=== PATIENT | female | born 2000 | race Caucasian/White ===

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

== ENCOUNTER → 2020-03-23 | Outpatient (CLI) | payer BC ==
[2020-03-23 15:40] LABS: FREE T4 (FREE THYROXINE) 0.94 ng/dL (0.78-2.19)
[2020-03-23 15:54] LABS: THYROID STIMULATING HORMONE 2.32 uIU/mL (0.47-4.68)
[2020-03-24 06:37] LABS: PROLACTIN 9.5 ng/mL (4.8-23.3)
== END ==
LOC: OD 11:23
PROVIDERS: ATTEND Internal Medicine Endocrinology, Diabetes & Metabolism
DX: E05.00 Thyrotoxicosis with diffuse goiter without thyrotoxic crisis or storm (principal)
CPT/HCPCS: 36415; 82024; 82533; 83519; 84146; 84305; 84439; 84443; 86376